=== PATIENT | female | born 1955 | race Caucasian/White ===

== ENCOUNTER → 2024-05-10 12:20 | Outpatient (REF) | payer MEDICARE, SELFPAY | LOC: HWWDC 12:20 | PROVIDERS: ATTENDING PHYSICIAN Internal Medicine; REFERRING PHYSICIAN Obstetrics & Gynecology | DX: Z12.31 Encounter for screening mammogram for malignant neoplasm of breast (principal) | CPT/HCPCS: 77063; 77067 ==

== ENCOUNTER → 2025-04-19 10:25 | Outpatient (REF) | payer MEDICARE, SELFPAY | LOC: HWRAD 10:25 | PROVIDERS: ATTENDING PHYSICIAN Obstetrics & Gynecology; FAMILY PHYSICIAN Internal Medicine | DX: Z78.0 Asymptomatic menopausal state (principal) | CPT/HCPCS: 77080 ==